=== PATIENT | female | born 1955 | race Caucasian/White ===

== ENCOUNTER 2017-01-14 10:32 | Day surgery (SDC) | payer MEDICARE ==
[~2017-01-14] VITALS: Ht 149.9 cm; Wt 107.5 kg
[2017-01-14] VITALS (9 sets, daily range): BP systolic 130–142; BP diastolic 66–86; PULSE 72–99; TEMP 97.7–98.1
[2017-01-14] MEDS ORDERED: LIPITOR20 MG PO (11:35)
[2017-01-14] MEDS ORDERED: TIROSINT100 MC1 PO (11:35)
[2017-01-14] MEDS ORDERED: COLACE 100100 MG/CAP PO (11:36)
[2017-01-14] MEDS ORDERED: MIRALAX PA17 GM/Dose PO (11:37)
[2017-01-14] MEDS ORDERED: VITAMIN C500 MG PO (11:37)
[2017-01-14] MEDS ORDERED: NATURAL IRON65 MG PO (11:39)
[2017-01-14] MEDS ORDERED: FOLIC ACID 40400 MCG PO (11:40)
[2017-01-14] MEDS ORDERED: BIOTIN 0.3 MG-21 TAB PO (11:44)
[2017-01-15 00:47] VITALS: BP 124/76; PULSE 93; TEMP 97.7
[2017-01-15 03:05] VITALS: BP 130/74; PULSE 77; TEMP 97.8
[2017-01-15 05:49] VITALS: BP 126/72; PULSE 75; TEMP 98.1
[2017-01-15] MEDS ORDERED: NORCO 325 MG-7.1 TAB PO (08:21)
[2017-01-15 09:12] VITALS: BP 118/68; PULSE 85; TEMP 97.7
== END 2017-01-15 09:50 | disposition home or self-care (01) ==
LOC: SDCO 10:32 → SURG 14:30 → SDCO 01-15 09:50
DX: K42.0 Umbilical hernia with obstruction, without gangrene (principal); E03.9 Hypothyroidism, unspecified; M17.0 Bilateral primary osteoarthritis of knee; E78.5 Hyperlipidemia, unspecified; E66.09 Other obesity due to excess calories; Z68.42 Body mass index [BMI] 45.0-49.9, adult; Z82.49 Family history of ischemic heart disease and other diseases of the circulatory system; Z83.3 Family history of diabetes mellitus; Z82.3 Family history of stroke
CPT/HCPCS: OP; C1781; J0330; J0690; J1100; J1885; J2250; J2405; J2704; J2710; J3010; J7120

== ENCOUNTER 2017-09-10 11:15 | Outpatient (RCR) | payer MEDICARE ==
[~2017-09-10 11:15] MED LIST: BIOTIN 0.3 MG-21 TAB PO; COLACE 100100 MG/CAP PO; FOLIC ACID 40400 MCG PO; LIPITOR20 MG PO; MIRALAX PA17 GM/Dose PO; NATURAL IRON65 MG PO; NORCO 325 MG-7.1 TAB PO; TIROSINT100 MC1 PO; VITAMIN C500 MG PO
== END 2017-12-02 | disposition home or self-care (01) ==
LOC: WSPT
DX: M17.0 Bilateral primary osteoarthritis of knee (principal)
CPT/HCPCS: G8978-GP; G8979-GP